=== PATIENT | female | born 1980 | race Caucasian/White ===

== ENCOUNTER → 2017-05-17 | Outpatient (CLI) | payer BC ==
--- NOTE | 2017-05-17 18:26 | CT ---
EXAMINATION TYPE: CT abdomen pelvis wo/w con DATE OF EXAM: 05/17/2017 COMPARISON: NONE HISTORY: Pt states of RLQ pain and blood in urine today CT DLP: 693.7 mGycm Automated exposure control for dose reduction was used. TECHNIQUE: Helical acquisition of images was performed from the lung bases through the pelvis. CONTRAST: Performed with Oral Contrast and without and with IV Contrast, patient injected with 100 mL of Omnipa que 300. FINDINGS: Lung bases are clear. There is no pleural effusion. Heart size is normal. Liver spleen pancreas gallbladder appear normal. Bile ducts are not dilated. There is no adrenal mass . Kidneys of normal size. There is enlargement of the right renal pelvis compared to the left. There is no evidence of renal mass. Calyces do not appear dilated. There is normal renal cortical contrast op acification. There is a 3 mm calcification in the pelvis on the right sided could potentially be dist al right ureteral calculus. I see no intestinal wall thickening. There are no dilated loops. There is no sign of appendicitis. Bl adder distends smoothly. There is no pelvic mass. There is no retroperitoneal adenopathy. I see no eric ny destructive process. There are bilateral breast implants. IMPRESSION: THERE IS ENLARGEMENT OF THE LEFT AND RIGHT RENAL PELVIS. THERE IS NORMAL RENAL CORTICAL FUNCTION BUT THERE IS DELAYED CONTRAST IN THE RIGHT PROXIMAL URETER COMPARED TO THE LEFT. ON AXIAL IMAGE 72 THERE IS A POSSIBLE 3 MM CALCIFICATION ON THE RIGHT SIDE COULD BE IN THE DISTAL RIGHT URETER.
== END | disposition home or self-care (01) ==
LOC: RADCTMAIN 16:19
PROVIDERS: ATTEND Family Medicine
DX: N28.89 Other specified disorders of kidney and ureter (principal)
CPT/HCPCS: 74178; Q9967

== ENCOUNTER → 2017-07-04 | Outpatient (CLI) | payer BC ==
--- NOTE | 2017-07-04 15:34 | US ---
EXAMINATION TYPE: US pelvis complete transvag DATE OF EXAM: 07/04/2017 COMPARISON: CT CLINICAL HISTORY: N83.209 Unspecified ovarian cyst, unspecified side. Pt states pelvic pain and abnor mal CT TECHNIQUE: Transvaginal (TV) and Transabdominal (TA) Date of LMP: 06/24/2017 EXAM MEASUREMENTS: Uterus: 8.9 x 4.2 x 5.7 cm Endometrial Stripe: 1.2 cm Right Ovary: 4.9 x 3.9 x 4.3 cm Left Ovary: 3.0 x 2.9 x 2.0 cm 1. Uterus: Retroverted Heterogeneous with possible fibroid vs. endometrial polyp just anterior to en dometrium= 0.9 x 1.1 x 1.0 cm 2. Endometrium: ?thickened for pt's cycle 3. Right Ovary: Complex lesion= 4.0 x 3.2 x 3.3 cm 4. Left Ovary: wnl 5. Bilateral Adnexa: Small amount of free fluid adjacent to right ovary 6. Posterior cul-de-sac: Small amount of free fluid IMPRESSION: 1. Findings likely reflects an endometrial leiomyoma. 2. Endometrial thickening. 3. Complex right ovarian lesion. Follow-up in 6 weeks is recommended to exclude possibility of malign claribel.
== END | disposition home or self-care (01) ==
LOC: RADUSWWP 14:27
PROVIDERS: ATTEND Family Medicine
DX: N83.9 Noninflammatory disorder of ovary, fallopian tube and broad ligament, unspecified (principal); R93.8 Abnormal findings on diagnostic imaging of other specified body structures
CPT/HCPCS: 76830; 76856

== ENCOUNTER → 2017-08-15 | Outpatient (CLI) | payer BC ==
--- NOTE | 2017-08-15 12:34 | US ---
EXAMINATION TYPE: US pelvis complete transvag DATE OF EXAM: 08/15/2017 COMPARISON: CT & US 2017 CLINICAL HISTORY: N83.209 Ovarian cyst right side. Follow up ovarian cyst, 4, para 3, ectopic 1, history of TECHNIQUE: Transvaginal (TV) and Transabdominal (TA) Date of LMP: 08/09/2017 EXAM MEASUREMENTS: Uterus: 7.7 x 4.8 x 4.9 cm Endometrial Stripe: 0.9 cm Right Ovary: 5.5 x 4.8 x 4.7 cm Left Ovary: 3.3 x 2.1 x 2.5 cm 1. Uterus: retroverted, heterogeneous with 1.1 x 0.8 x 1.0cm hypoechoic area posterior myometrium ad jacent to and slightly indenting endometrium 2. Endometrium: appears thickened at 0.9cm for patient's LMP 3. Right Ovary: 4.8 x 4.3 x 4.6cm hypoechoic lesion that appears to have increased in size from prev ious ultrasound 4. Left Ovary: 1.5 x 1.2 x 1.5cm cystic area with internal echoes 5. Bilateral Adnexa: wnl 6. Posterior cul-de-sac: small amount of free fluid IMPRESSION: 1. Increase in size of a hypoechoic lesion within the right ovary. Expanding hemorrhagic cyst could b e considered. 2. A 1 cm uterine fibroid.
== END | disposition home or self-care (01) ==
LOC: RADUSWWP 08:58
PROVIDERS: ATTEND Family Medicine
DX: D25.9 Leiomyoma of uterus, unspecified (principal); N83.9 Noninflammatory disorder of ovary, fallopian tube and broad ligament, unspecified
CPT/HCPCS: 76830; 76856